=== PATIENT | female | born 1965 | race Caucasian/White ===

== ENCOUNTER 2019-04-12 15:11 | Emergency (ER) | payer MEDICARE ==
--- OUTSIDE RECORDS SUMMARY | 2019-04-12 16:01 | XMS REPORT | Continuity of Care Document ---
:1965 External Reference #:[id number] Author Name Elvira Orantes NP Address [address] [place] [address] Problems Description No Information Available Social History Type Date Description Comments Sex Unknown Tobacco Use Start: Unknown End: Former Cigarette Smoker former smoker. quit x Unknown 8 years ago. smoked x 40 years 4PPD. ETOH Use Occasionally consumes alcohol Tobacco Use Start: Unknown End: Patient is a former smoker Unknown Smoking Status Reviewed: 11/22/18 Patient is a former smoker Allergies, Adverse Reactions, Alerts Active Allergies Reaction Severity Comments Date Doxycycline 08/12/2018 Penicillin 08/12/2018 Demerol 08/12/2018 Latex Hives Moderate 11/22/2018 Medications Active Medications SIG Qnty Indications Ordering Date Provider Duloxetine HCL take 1 capsule by 60caps Elvira Orantes, 03/07/2019 20mg mouth 2 times per [employer] Caps DR Dominguez day for depression Alprazolam take 1 tablet by 120tabs Elvira Orantes, 1mg Tablets mouth 4 times [employer] daily as needed. Hydromorphone HCL 1 tablet by mouth 90tabs Elvira Orantes, 4mg 3 times daily as [employer] Tablets needed. Estradiol take 1 tablet by 90tabs Elvira Orantes, 0.5mg Tablets mouth daily - must [employer] be teva Vitamin B Complex 1 per day Unknown Tablets Multi For Her 50+ Unknown Capsules Folic Acid 1 by mouth every Unknown 1mg Tablets day Glucosamine 1 by mouth twice a Unknown Chondroitin Advanced day for pain Tablets History Medications Duloxetine HCL 1 tablet by mouth 60caps Elvira Orantes, 01/25/2019 - 40mg Caps twice daily [employer] 03/07/2019 DR Dominguez Prednisone take 1 tablet by 5tabs M47.13 Elvira Lamberto, 12/27/2018 - 50mg Tablets mouth daily x 5 [employer] 12/27/2018 days Gabapentin take 1-2 capsules 180caps Elvira Orantes, 12/27/2018 - 100mg Capsules by mouth up to 3 [employer] 01/25/2019 times a day Duloxetine HCL take 1 capsule by 60caps Carlotta Haas 11/22/2018 - 20mg Caps mouth 2 times per Storm, [facility] 01/25/2019 DR Alberto hogan for depression Silenor take 1 tablet by 30tabs Elvira Orantes, 10/20/2018 - 3mg Tablets mouth daily at [employer] 12/27/2018 bedtime for trouble sleeping Lunesta take 1 tablet by 30tabs Elvira Orantes, 10/19/2018 - 1mg Tablets mouth daily [employer] 10/20/2018 immediately before bedtime for trouble sleeping Fludrocortisone 2 tablets by mouth 60tabs Elvira Orantes, 10/19/2018 - Acetate every day [employer] 12/27/2018 0.1mg Tablets Immunizations CPT Code Status Date Vaccine Lot # [id number] Given 11/15/2018 Influenza Virus Vaccine, Quadrivalent, 3 Yr > Quad, Preserv Free [id number] Given 10/19/2018 Tdap (Adacel) [id number] Vital Signs Date Vital Result Comment 03/28/2019 1:33pm Weight 157.00 lb Weight 71.215 kg BP Systolic 120 mmHg BP Diastolic 80 mmHg Heart Rate 62 /min Body Temperature 98.3 F Respiratory Rate 16 /min 03/07/2019 9:53am Weight 158.00 lb Weight 71.669 kg BP Systolic 128 mmHg BP Diastolic 76 mmHg Heart Rate 64 /min Body Temperature 97.6 F Respiratory Rate 16 /min Results Test Acquired Facility Test Result H/L Range Note Date Laboratory 10/19/2018 [facility] Cologuard <pending> test finding [address] [place] [address] [phone] CBC Auto Diff 10/19/2018 [facility] White Blood 5.9 Normal 3.5-10.8 [phone] Count 10^3/uL Red Blood Count 4.42 10^6/uL Normal 3.70-4.87 Hemoglobin 13.0 g/dL Normal 12.0-16.0 Hematocrit 39 % Normal 35-47 Mean Corpuscular Volume 88 fL Normal 80-97 Mean Corpuscular Hemoglobin 29 pg Normal 27-31 Mean Corpuscular HGB Conc 33 g/dL Normal 31-36 Red Cell Distribution Width 16 % High 10-15 Platelet Count 312 10^3/uL Normal 150-450 Mean Platelet Volume 7.6 fL Normal 7.4-10.4 Abs Neutrophils 2.8 10^3/uL Normal 1.5-7.7 Abs Lymphocytes 2.5 10^3/uL Normal 1.0-4.8 Abs Monocytes 0.4 10^3/uL Normal 0-0.8 Abs Eosinophils 0.1 10^3/uL Normal 0-0.6 Abs Basophils 0.1 10^3/uL Normal 0-0.2 Abs Nucleated RBC 0.0 10^3/uL Granulocyte % 48.4 % Lymphocyte % 42.4 % Monocyte % 6.6 % Eosinophil % 1.7 % Basophil % 0.9 % Nucleated Red Blood Cells % 0.0 Comp Metabolic 10/19/2018 [facility] Sodium 139 mmol/ L Normal 135-145 Panel [phone] Potassium 4.1 mmol/L Normal 3.5-5.0 Chloride 107 mmol/L Normal 101-111 Co2 Carbon Dioxide 26 mmol/L Normal 22-32 Anion Gap 6 mmol/L Normal 2-11 Glucose 104 mg/dL High 70-100 Blood Urea Nitrogen 11 mg/dL Normal 6-24 Creatinine 0.65 mg/dL Normal 0.51-0.95 BUN/Creatinine Ratio 16.9 Normal 8-20 Calcium 9.6 mg/dL Normal 8.6-10.3 Total Protein 6.7 g/dL Normal 6.4-8.9 Albumin 4.4 g/dL Normal 3.2-5.2 Globulin 2.3 g/dL Normal 2-4 Albumin/Globulin Ratio 1.9 Normal 1-3 Total Bilirubin 0.40 mg/dL Normal 0.2-1.0 Alkaline Phosphatase 61 U/L Normal 34-104 Alt 14 U/L Normal 7-52 Ast 20 U/L Normal 13-39 Egfr Non- 96.1 >60 Egfr 116.3 >60 1 Lipid Profile 10/19/2018 [facility] Triglycerides 135 mg/dL 2 (Trig/Chol/HDL) [phone] Cholesterol 218 mg/dL 3 HDL Cholesterol 74.6 mg/dL 4 LDL Cholesterol 116 mg/dL 5 Laboratory test 10/19/2018 [facility] Hemoglobin A1c 5.4 % Normal 4.0-5.6 6 finding [phone] 1 Because ethnic data is not always readily available, this report includes an eGFR for both -Americans and non- Americans. The National Kidney Disease Education Program (NKDEP) does not endorse the use of the MDRD equation for patients that are not between the ages of 18 and 70, are , have extremes of body size, muscle mass, or nutritional status, or are non- or non-. According to the National Kidney Foundation, irrespective of diagnosis, the stage of the disease is based on the level of kidney function: Stage Description GFR(mL/min/1.73 m(2)) 1 Kidney damage with normal or decreased GFR 90 2 Kidney damage with mild decrease in GFR 60-89 3 Moderate decrease in GFR 30-59 4 Severe decrease in GFR 15-29 5 Kidney failure <15 (or dialysis) 2 Desirable: <150 Borderline High: 150-199 High: 200-499 Very High: >500 3 Desirable: <200 Borderline High: 200-239 High: >239 4 Low: <40 Desirable: 40-60 High: >60 5 Desirable: <100 Near Optimal: 100-129 Borderline High: 130-159 High: 160-189 Very High: >189 6 Therapeutic target for the treatment of diabetes mellitus patients is <7% HBA1C, and in selective patients <6.0%. Please refer to [place] [employer] diabetic care guidelines for further information. 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, cervicothoracic region Office Visit 01/25/2019 11:30a Main Office Elvira Orantes I95.0 Idiopathic [employer] hypotension F41.9 Anxiety disorder, unspecified G47.00 Insomnia, unspecified 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, cervicothoracic region Office Visit 12/27/2018 9:45a Main Office Elvira Orantes NP F33.8 Other recurrent depressive disorders G47.00 Insomnia, unspecified F41.9 Anxiety disorder, unspecified I95.0 Idiopathic hypotension 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, cervicothoracic region Office Visit 11/22/2018 10:45a Main Office Elvira Orantes NP F33.8 Other recurrent depressive disorders G47.00 Insomnia, unspecified F41.9 Anxiety disorder, unspecified I95.0 Idiopathic hypotension Office Visit 10/19/2018 10:15a Main Office Elvira Orantes NP Z00.00 Encntr for general adult medical exam w/o abnormal findings F41.9 Anxiety disorder, unspecified G47.00 Insomnia, unspecified M47.26 Other spondylosis with radiculopathy, lumbar region I95.0 Idiopathic hypotension Z23 Encounter for immunization Assessments Date Code Description Provider 03/28/2019 I95.0 Idiopathic hypotension Elvira Orantes, [employer] 03/28/2019 F41.9 Anxiety disorder, unspecified Elvira Orantes, [employer] 03/28/2019 G47.00 Insomnia, unspecified Elvira Orantes, [employer] 03/28/2019 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, Elvira Orantes NP cervicothoracic region 03/07/2019 I95.0 Idiopathic hypotension Elvira Orantes, [employer] 03/07/2019 F41.9 Anxiety disorder, unspecified Elvira Orantes, [employer] 03/07/2019 G47.00 Insomnia, unspecified Elvira Orantes, [employer] 03/07/2019 F33.8 Other recurrent depressive disorders Elvira Orantes, [employer] 03/07/2019 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, Elvira Orantes NP cervicothoracic region 01/25/2019 I95.0 Idiopathic hypotension Elvira Orantes, [employer] 01/25/2019 F41.9 Anxiety disorder, unspecified Elvira Orantes, [employer] 01/25/2019 G47.00 Insomnia, unspecified Elvira Orantes, [employer] 01/25/2019 F33.8 Other recurrent depressive disorders Elvira Orantes NP 01/25/2019 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, Elvira Orantes NP cervicothoracic region 12/27/2018 F33.8 Other recurrent depressive disorders Elvira Orantes, MONTEZ 12/27/2018 G47.00 Insomnia, unspecified Elvira Orantes, [employer] 12/27/2018 F41.9 Anxiety disorder, unspecified Elvira Lamberto, [employer] 12/27/2018 I95.0 Idiopathic hypotension Elvira Lamberto, [employer] 12/27/2018 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, Elvira Orantes NP cervicothoracic region 11/22/2018 F33.8 Other recurrent depressive disorders Elvira Orantes, [employer] 11/22/2018 G47.00 Insomnia, unspecified Elvira Orantes, [employer] 11/22/2018 F41.9 Anxiety disorder, unspecified Elvira Orantes, [employer] 11/22/2018 I95.0 Idiopathic hypotension Elvira Lamberto, MONTEZ 10/19/2018 Z00.00 Encounter for general adult medical examination Elvira Orantes NP without abnormal findings 10/19/2018 F41.9 Anxiety disorder, unspecified Elvira Orantes, MONTEZ 10/19/2018 G47.00 Insomnia, unspecified Elvira Lamberto, [employer] 10/19/2018 M47.26 Other spondylosis with radiculopathy, lumbar Elvira Orantes NP region 10/19/2018 I95.0 Idiopathic hypotension Elvira MONTEZ Orantes 10/19/2018 Z23 Encounter for immunization Elvira Orantes NP Plan of Treatment 03/28/2019 - Elvira MONTEZ OrantesI95.0 Idiopathic [id number] Anxiety disorder , unspecifiedFollow up:.Recommendations:Anxiety Everyone feels anxious or nervous once in a while. That is normal. But being extremely anxious or worried on most days for 6 months or longer is not normal. This is called "generalized anxiety disorder." The disorder can make it hard to do everyday tasks. Generalized anxiety disorder is just one anxiety disorder. There are others, such as panic disorder and phobias. This article focuses on generalized anxiety disorder. People with extreme or severe anxiety feel very worried or "on edge" muchof the time. They can have trouble sleeping or forget things. Plus, they can have physical symptoms.For instance, people with severe anxiety often feel very tired and have tense muscles. Some get stomach aches or feel chest "tightness." Exercise can help many people feel less anxious. It's also a good idea to cut down on or stop drinking coffee and other sources of caffeine. Caffeine can make anxiety worse. Psychotherapy involves meeting with a mental health counselor to talk about your feelings,relationships, and worries. Therapy can help you find new ways of thinking about your situation so that you feel less anxious. In therapy, you might also learn new skills to reduce anxiety. Medicines used to treat depression can relieve anxiety, too, even in people who are not depressed. Some people have psychotherapy and take medicines at the same time. There is no reason to feel embarrassed about getting treatment for anxiety. Anxiety is a common problem. It affects all kinds of people. Keep in mind that it might take a little while to find the right treatment. People respond in different ways to medicines and therapy, so you might need to try a few approaches before you find the one that helpsyou most. The garcia is to not give up and to let your health care provider know how you feel along theway. People with anxiety disorders often have to deal with some anxiety for the rest of their life. For some, anxiety comes and goes, but gets bad during times of stress. The good news is, many people find effective treatments or ways to deal with their anxiety.G47.00 Insomnia, unspecifiedFollow up:.Recommendations:Sleep hygiene -Sleep only long enough to feel rested and then get out of bed -Go to bed and get up at the same time every day -Do not try to force yourself to sleep. If you can't sleep, get out of bed and try again later. -Have coffee, tea, and other foods that have caffeine only in the morning -Avoidalcohol in the late afternoon, evening, and bedtime -Avoid smoking, especially in the evening -Keep your bedroom dark, cool , quiet, and free of reminders of work or other things that cause you stress - Solve problems you have before you go to bed -Exercise several days a week, but not right before bed -Avoid looking at phones or reading devices ("e-books") that give off light before bed. This can makeit harder to fall asleep. Other things that can improve sleep include: -Relaxation therapy, in whichyou focus on relaxing all the muscles in your body 1 by 1 -Working with a counselor or psychologist to deal with the problems that might be causing poor sleep -You should spend no more than 20 minutes lying in bed trying to fall asleep. -If you cannot fall asleep within 20 minutes, get up, go to another room and read or find another relaxing activity until you feel sleepy again. Activities such as eating, balancing your checkbook, doing housework, watching TV, or studying for a test, which "reward" you for staying awake, should be avoided. -When you start to feel sleepy, you can return to bed. If you cannot fall asleep in another 20 minutes, repeat the process. -Set an alarm clock and get up at the same time every day, including weekends. 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
[2019-04-12] MEDS ORDERED: NS 0.9% 1000 ML** 1,000 ML IV ONE (16:23)
--- NOTE | 2019-04-12 16:24 | ED ---
Adult Trauma - HPI Summary HPI Summary: Patient is a 53 y/o F presenting to [facility] with complaints of abdominal pain, back pain, and neck pain after fall. She states that she was climbing up a staircase when the bottom step gave out. Patient fell forward and landed on staircase. She notes Hx of umbilical hernia, gastric bypass, and degenerative disc disease. No head injury and no bruising noted, patient is not on anticoagulation therapy. She went to [facility] and was sent to ED for further evaluation. Home medications and allergies are reviewed. Home Medications Medication Instructions Recorded Confirmed Type Acetaminophen TAB* [Tylenol TAB*] 650 mg PO DAILY PRN 10/27/18 03/28/19 History Folic Acid TAB* [Folvite TAB*] 1 mg PO DAILY 10/27/18 03/28/19 History HYDROmorphone TAB* [Dilaudid TAB*] 4 mg PO Q8HR PRN MDD 3 10/27/18 03/28/19 History Melatonin [Ra Melatonin] 40 mg PO BEDTIME PRN 10/27/18 03/28/19 History Multivitamin [Multiple Vitamins] 1 tab PO DAILY 10/27/18 03/28/19 History Vitamin B Complex CAP* [B Complex 1 cap PO DAILY 10/27/18 03/28/19 History CAP*] DULoxetine DR CAP* [Cymbalta CAP*] 40 mg PO BID 11/25/18 03/28/19 History ALPRAZolam [Xanax] 1 mg PO QID 01/25/19 03/28/19 History - History of Current Complaint Chief Complaint: EDBackInjuryPain Stated Complaint: FALL/BACK AND STOMACH PER PT Time Seen by Provider: 04/12/19 16:13 Hx Obtained From: Patient Mechanism of Injury: Fall Ambulatory at the Scene: Yes Loss of Consciousness: no loss of consciousness Onset/Duration: Still Present Onset of Pain: Prior to Arrival Current Severity: Severe Pain Intensity: 10 Pain Scale Used: 0-10 Numeric Location: Neck, Back, Abdomen/Pelvis Associated Signs & Symptoms: Positive: Abdominal Pain, Other: - positive - back and neck pain; negative - head injury, bruising - Allergy/Home Medications Allergies/Adverse Reactions: Allergies Allergy/AdvReac Type Severity Reaction Status Date / Time meperidine [From Demerol] Allergy Severe See Comment Verified 03/28/19 09:39 doxycycline Allergy Hives Verified 03/28/19 09:39 latex Allergy Hives Verified 03/28/19 09:39 Penicillins Allergy Hives Verified 03/28/19 09:39 Home Medications: Home Medications Acetaminophen TAB* [Tylenol TAB*] 650 mg PO DAILY PRN 10/27/18 [History Confirmed 03/28/19] Folic Acid TAB* [Folvite TAB*] 1 mg PO DAILY 10/27/18 [History Confirmed ] HYDROmorphone TAB* [Dilaudid TAB*] 4 mg PO Q8HR PRN MDD 3 10/27/18 [History Confirmed 03/28/19] Melatonin [Ra Melatonin] 40 mg PO BEDTIME PRN 10/27/18 [History Confirmed ] Multivitamin [Multiple Vitamins] 1 tab PO DAILY 10/27/18 [History Confirmed 12/05] Vitamin B Complex CAP* [B Complex CAP*] 1 cap PO DAILY 10/27/18 [History Confirmed 03/28/19] DULoxetine DR CAP* [Cymbalta CAP*] 40 mg PO BID 11/25/18 [History Confirmed 12/05] ALPRAZolam [Xanax] 1 mg PO QID 01/25/19 [History Confirmed 03/28/19] PMH/Surg Hx/FS Hx/Imm Hx Respiratory History: Denies: Hx Asthma, Hx Chronic Obstructive Pulmonary Disease (COPD), Hx Sleep Apnea GI History: Reports: Other GI Disorders - umbilical hernia Denies: Hx Gastroesophageal Reflux Disease, Hx Ulcer Musculoskeletal History: Reports: Hx Arthritis, Hx Back Problems Neurological History: Reports: Hx Migraine Denies: Hx Seizures, Hx Transient Ischemic Attacks (TIA) Psychiatric History: Reports: Hx Anxiety, Hx Depression - Surgical History Surgery Procedure, Year, and Place: 2014 Gastric bypass- [place]. tonsilectomy [place]. tubuligation 2002 [place] Infectious Disease History: No Infectious Disease History: Denies: Hx Hepatitis, Hx Human Immunodeficiency Virus (HIV), Hx Tuberculosis , Traveled Outside the in Last 30 Days - Family History Known Family History: Negative: Diabetes - Social History Alcohol Use: Occasionally Alcohol Amount: 1-2 drinks per month Substance Use Type: Reports: None Smoking Status (MU): Former Smoker Type: Cigarettes Have You Smoked in the Last Year: No Review of Systems Positive: Abdominal Pain Positive: Myalgia - back and neck Negative: Bruising Neurological/Mental Status: Other - no head injury All Other Systems Reviewed And Are Negative: Yes Physical Exam - Summary Physical Exam Summary: Constitutional: Well-developed, Well-nourished, Alert. (-) Distressed Skin: Warm, Dry HENT: Normocephalic; Atraumatic Eyes: Conjunctiva normal Neck: Musculoskeletal ROM normal neck. (-) JVD, (-) Stridor, (-) Tracheal deviation Cardio: Rhythm regular, rate normal, Heart sounds normal; Intact distal pulses; The pedal pulses are 2+ and symmetric. Radial pulses are 2+ and symmetric. (-) Murmur Pulmonary/Chest wall: Effort normal. (-) Respiratory distress, (-) Wheezes, (-) Rales Abd: Soft, (-) tenderness, (-) Distension, (-) Guarding, (-) Rebound Musculoskeletal: Lower cervical tenderness to palpation as well as tenderness through lumbar and thoracic regions. No bruising noted. Lymph: (-) Cervical adenopathy Neuro: Alert, Oriented x3 Psych: Mood and affect Normal Triage Information Reviewed: Yes Vital Signs On Initial Exam: Initial Vitals Temp Pulse Resp BP Pulse Ox 98.1 F 76 18 114/85 96 04/12/19 15:33 04/12/19 15:33 04/12/19 15:33 04/12/19 15:33 04/12/19 15:33 Vital Signs Reviewed: Yes Procedures - Sedation Patient Received Moderate/Deep Sedation with Procedure: No Diagnostics - Vital Signs Vital Signs Temp Pulse Resp BP Pulse Ox 04/12/19 15:33 98.1 F 76 18 114/85 96 - Laboratory Result Diagrams: 04/12/19 16:30 04/12/19 16:30 Lab Statement: Any lab studies that have been ordered have been reviewed, and results considered in the medical decision making process. - CT CT ABD/PEL CT Interpretation Completed By: Radiologist Summary of CT Findings: CT ABD/PEL IMPRESSION: #. No abdominal pelvic traumatic injury evident. #. Hepatosteatosis. #. Postsurgical change of Marika- en-Y gastric bypass without suspicious finding. THIS REPORT WAS REVIEWED BY ED PHYSICIAN. CERVICAL SPINE CT CT Interpretation Completed By: Radiologist Summary of CT Findings: CERVICAL SPINE CT IMPRESSION: #. No CT evidence for traumatic cervical spine injury. THIS REPORT WAS REVIEWED BY ED PHYSICIAN. Adult Trauma Course/Dx - Course Course Of Treatment: Patient is a 53 y/o F presenting to [facility] with complaints of abdominal pain, back pain, and neck pain after fall. She states that she was climbing up a staircase when the bottom step gave out. Patient fell forward and landed on staircase. She notes Hx of umbilical hernia, gastric bypass, and degenerative disc disease. No head injury and no bruising noted, patient is not on anticoagulation therapy. She went to [facility] and was sent to ED for further evaluation. Lower cervical tenderness to palpation as well as tenderness through lumbar and thoracic regions. No bruising noted. Abdomen is soft, non-tender, non-distended. During ED course, patient received fluids. Bloodwork within normal limits with exception of MCH 32, MPV 7.3. CT ABD/PEL IMPRESSION: #. No abdominal pelvic traumatic injury evident. #. Hepatosteatosis. #. Postsurgical change of Marika-en-Y gastric bypass without suspicious finding. CERVICAL SPINE CT IMPRESSION: #. No CT evidence for traumatic cervical spine injury. Patient was discharged to home and will followup with PCP. - Diagnoses Provider Diagnoses: Abdominal pain, Cervical strain Discharge ED - Sign-Out/Discharge Documenting (check all that apply): Patient Departure - discharge - Discharge Plan Condition: Stable Disposition: HOME Patient Education Materials: Cervical Strain (ED), Abdominal Pain (ED) Referrals: Carlotta Woods, [employer]ULTING [employer] EXECUTIVE [Primary Care Provider] - 3 Days Additional Instructions: PLEASE RETURN FOR ANY NEW OR CONCERNING SYMPTOMS. PLEASE FOLLOW UP WITH YOUR PRIMARY CARE PHYSICIAN WITHIN THREE DAYS. - Billing Disposition and Condition Condition: STABLE Disposition: Home - Attestation Statements Document Initiated by Nadja: Yes Documenting Scribe: YENNY MARX Provider For Whom Nadja is Documenting (Include Credential): JAMIR HOLT DO Scribe Attestation: YENNY Lewis scribed for JAMIR HOLT DO on 04/12/19 at 1927. Scribe Documentation Reviewed: Yes Provider Attestation: The documentation as recorded by the YENNY jack accurately reflects the service I personally performed and the decisions made by , JAMIR HOLT DO Status of Scribe Document: Viewed
[2019-04-12 16:38] LABS: ABS Lymphocytes 2.3 10^3/ul (1.0-4.8); ABS Monocytes 0.3 10^3/ul (0-0.8); ABS Neutrophils 3.3 10^3/ul (1.5-7.7); Eosinophil % 0.3 %; Hematocrit 36 % (35-47); Hemoglobin 12.8 g/dL (12.0-16.0); Lymphocyte % 39.4 %; Mean Corpuscular HGB Conc 35 g/dL (31-36); Mean Corpuscular Hemoglobin 32 pg (27-31); Mean Corpuscular Volume 90 fL (80-97); Mean Platelet Volume 7.3 fL (7.4-10.4); Platelet Count 291 10^3/uL (150-450); Red Blood Count 4.04 10^6 /uL (3.70-4.87); Red Cell Distribution Width 14 % (10-15); White Blood Count 5.9 10^3/uL (3.5-10.8)
[2019-04-12 16:56] LABS: Albumin 4.5 g/dL (3.2-5.2); Albumin/Globulin Ratio 1.7 (1-3); BUN/Creatinine Ratio 11.9 (8-20); Calcium 9.4 mg/dL (8.6-10.3); EGFR African American 112.3 (>60); EGFR Non-African American 92.8 (>60); Globulin 2.7 g/dL (2-4); Potassium 3.9 mmol/L (3.5-5.0); Total Bilirubin 0.5 mg/dL (0.2-1.0); Total Protein 7.2 g/dL (6.4-8.9)
[2019-04-12] MEDS ORDERED: Iohexol 300* (CONTRAST) 10 ML SDV IV ONE (17:08)
[2019-04-12 18:26] VITALS: BP 131/73
== END 2019-04-12 18:25 | disposition home or self-care (01) ==
LOC: ED 15:11
DX: S16.1XXA Strain of muscle, fascia and tendon at neck level, initial encounter (principal); R10.9 Unspecified abdominal pain; W10.9XXA Fall (on) (from) unspecified stairs and steps, initial encounter; Y92.9 Unspecified place or not applicable; F41.9 Anxiety disorder, unspecified; F32.9 Major depressive disorder, single episode, unspecified; Z87.891 Personal history of nicotine dependence; Z79.899 Other long term (current) drug therapy; Z88.0 Allergy status to penicillin; Z88.1 Allergy status to other antibiotic agents; Z88.5 Allergy status to narcotic agent; Z91.040 Latex allergy status
CPT/HCPCS: 36415; 72125; 74177; 80053; 85025; 96360; 99282; Q9967